=== PATIENT | male | born 1960 | race Hispanic/Latino ===

== ENCOUNTER 2020-03-15 14:40 | Emergency (ER) | payer OTHER ==
[2020-03-15] MEDS ORDERED: PANTOPRAZOLE 40 MG INJ ONE (15:54)
[2020-03-15] MEDS ORDERED: NA CHLORIDE 0.9% 1,000 ML ONE (15:54)
--- NOTE | 2020-03-15 16:16 | RAD REPORT ---
EXAM DESCRIPTION: RAD - Chest Single View - 03/15/2020 3:43 pm CLINICAL HISTORY: bloody stoolsfever COMPARISON: None TECHNIQUE: AP portable chest image was obtained 03/15/2020 3:43 pm . FINDINGS: Lung volumes are low. No focal consolidation or mass. Atelectasis changes are evident. Pat ient likely has some minimal scarring. Heart and vasculature are normal. No measurable pleural effusi on and no pneumothorax. No acute bony abnormality seen. No acute aortic findings suspected. IMPRESSION: Limited shallow inspiration film without significant cardiopulmonary finding identifiabl e.
[2020-03-15 16:25] LABS: Absolute Lymphocytes (CBC) 0.4 K/uL (0.7-4.9); Basophils % 0.7 % (0-1.3); Hematocrit 42.5 % (39.6-49.0); Lymphocytes % 7.5 % (15.3-44.8); MPV 8.4 fL (7.6-11.3); RBC Red Blood Cell Count 4.76 M/uL (4.33-5.43)
[2020-03-15 16:29] LABS: Protime INR 1.11
[2020-03-15 16:30] LABS: ALT/SGPT 87 U/L (12-78); AST/SGOT 62 U/L (15-37); Alkaline Phosphatase 80 U/L (45-117); Amylase 89 U/L (25-115); BUN Blood Urea Nitrogen 17 mg/dL (7-18); Bicarbonate 20 mmol/L (21-32); Bilirubin Direct 0.2 mg/dL (0-0.2); Bilirubin Total 0.7 mg/dL (0.2-1.0); CKMB Creatine Kinase MB < 1.0 ng/mL (0.3-3.6); Creatine Phosphokinase 129 U/L (39-308); Glucose Level 154 mg/dL (74-106); Lipase 241 U/L (73-393); Potassium 3.5 mmol/L (3.5-5.1); Protein, Total 8.1 g/dL (6.4-8.2); Sodium Level 133 mmol/L (136-145); Troponin (Emerg Dept Use Only) < 0.02 ng/mL (0.0-0.045)
--- NOTE | 2020-03-15 17:37 | RAD REPORT ---
EXAM DESCRIPTION: CT - Abdomen Pelvis W Contrast - 03/15/2020 5:20 pm CLINICAL HISTORY: ABD PAIN COMPARISON: No comparisons TECHNIQUE: Biphasic, helical CT imaging of the abdomen and pelvis was performed following 100 ml non -ionic IV contrast. No oral contrast administered. All CT scans are performed using dose optimization technique as appropriate and may include automated exposure control or mA/KV adjustment according to patient size. FINDINGS: Linear stranding is present in both lung bases. This is atelectasis, scarring or a combina tion. Liver shows diffuse fatty infiltration. No focal liver lesions seen. Liver is normal size. No portal vein abnormality. Spleen and pancreas show no suspicious findings. Gallbladder and biliary tree are a lso without suspicious finding. Gallstones can be occult on CT imaging. Symmetric renal function is seen with no hydronephrosis or suspicious renal mass. No pyelonephritis o r acute parenchymal process. No bladder abnormalities. No adrenal abnormalities. No dilated bowel loops or bowel wall thickening. Appendix is normal. No active GI process seen. No fr ee air, free fluid or inflammatory stranding. No hernia, mass or bulky lymphadenopathy. No suspicious bony findings. IMPRESSION: Contrast enhanced CT abdomen and pelvis showing no acute or emergent finding. Patient has diffuse fatty infiltration of the liver.
--- NOTE | 2020-03-15 18:09 | EDPHYS ---
Physician Documentation [facility] Name: Sd Adame Age: 59 yrs Sex: Male : 1960 Arrival Date: 03/15/2020 Time: 14:45 Bed 4 Private MD: ED Physician Nikko Tamayo Historical: - Allergies: 03/15 15:00 No Known Allergies; em - PMHx: 15:00 Gout; em - PSHx: 15:00 None; em - Immunization history:: Adult Immunizations unknown. - Social history:: Smoking status: Patient denies any tobacco usage or history of. Vital Signs: 14:56 BP 149 / 100; Pulse 115; Resp 20; Temp 100.3(O); Pulse Ox 96% on R/A; Weight 90.72 kg; em Height 5 ft. 8 in. (172.72 cm); Pain 5/10; 15:30 BP 121 / 83; Pulse 97; Resp 15; Temp 98.6; Pulse Ox 96% ; jl7 16:30 BP 119 / 79; Pulse 94; Resp 15; Pulse Ox 96% ; jl7 17:20 BP 126 / 78; Pulse 85; Resp 14; Pulse Ox 99% ; jl7 18:26 BP 124 / 79; Pulse 91; Resp 15; Pulse Ox 100% ; jl7 14:56 Body Mass Index 30.41 (90.72 kg, 172.72 cm) em MDM: 18:08 Patient medically screened. [facility] 03/15 15:26 Order name: Amylase, Serum; Complete Time: 17:08 kdr 03/15 15:26 Order name: Basic Metabolic Panel; Complete Time: 17:08 kdr 03/15 15:26 Order name: Blood Culture Adult (2) kdr 03/15 15:26 Order name: CBC with Diff; Complete Time: 17:08 kdr 03/15 15:26 Order name: Ckmb; Complete Time: 17:08 kdr 03/15 15:26 Order name: CPK; Complete Time: 17:08 kdr 03/15 15:26 Order name: Lactate; Complete Time: 17:08 kdr 03/15 15:26 Order name: LFT's; Complete Time: 17:08 kdr 03/15 15:26 Order name: Lipase; Complete Time: 17:08 kdr 03/15 15:26 Order name: Procalcitonin; Complete Time: 17:08 [facility] 03/15 15:26 Order name: Protime (+inr); Complete Time: 17:08 [facility] 03/15 15:26 Order name: Ptt, Activated; Complete Time: 17:08 [facility] 03/15 15:26 Order name: Troponin (emerg Dept Use Only); Complete Time: 17:08 [facility] 03/15 15:26 Order name: Urine Microscopic Only [facility] 03/15 15:26 Order name: Chest Single View XRAY; Complete Time: 17:08 [facility] 03/15 15:26 Order name: Accucheck; Complete Time: 15:59 kdr 03/15 15:26 Order name: Cardiac monitoring; Complete Time: 15:59 [facility] 03/15 15:26 Order name: EKG - Nurse/Tech; Complete Time: 15:59 [facility] 03/15 15:26 Order name: IV Saline Lock - Large Bore; Complete Time: 15:59 [facility] 03/15 15:26 Order name: Labs collected and sent; Complete Time: 15:59 [facility] 03/15 15:26 Order name: O2 Per Protocol; Complete Time: 15:59 [facility] 03/15 15:26 Order name: O2 Sat Monitoring; Complete Time: 15:59 [facility] 03/15 15:26 Order name: Urine Dipstick-Ancillary (obtain specimen); Complete Time: 18:31 [facility] 03/15 15:38 Order name: CT Abd/Pelvis - IV Contrast Only; Complete Time: 18:05 [facility] 03/15 18:40 Order name: Urine Dipstick--Ancillary (enter results) em1 Administered Medications: 16:05 Drug: NS 0.9% (30 ml/kg) 30 ml/kg Route: IV; Rate: bolus; Site: left hand; 7 17:00 Follow up: Response: No adverse reaction; IV Status: Completed infusion; IV Intake: jl7 1000ml 16:05 Drug: ProTONIX 40 mg Route: IVP; Site: left hand; 7 16:28 Follow up: Response: No adverse reaction 7 Disposition: 03/15/20 18:08 Discharged to Home. Impression: Fever, unspecified, Abdominal and pelvic pain. - Condition is Stable. - Discharge Instructions: Urinary Tract Infection, Adult, Alje-gi-Gerp, Abdominal Pain, Adult, [id number], COVID-19. - Prescriptions for Pepcid 20 mg Oral Tablet - take 1 tablet by ORAL route every 12 hours for 5 days; 10 tablet. Zofran 4 mg Oral Tablet - take 1 tablet by ORAL route every 12 hours As needed; 20 tablet. Bactrim DS 800- 160 mg Oral Tablet - take 1 tablet by ORAL route every 12 hours for 7 days; 14 tablet. - Medication Reconciliation Form, Thank You Letter form. - SBAR form (03/15/20 21:18). ls4 - Follow up: Private Physician; When: 2 - 3 days; Reason: If symptoms return, Further diagnostic work-up, Recheck today's complaints, Continuance of care, Re-evaluation by your physician. - Problem is new. - Symptoms have improved. Signatures: Dispatcher [employer] EDMS Nikko Tamayo MD MD kdr Munoz, Edgar, RN RN em Seven Mishra RN RN jl7 Gilma Waller RN ls4 Corrections: (The following items were deleted from the chart) 18:28 18:16 CORONAVIRUS+MR.LAB.BRZ ordered. EDWY EDMS 18:42 15:27 UA MICROSCOPIC+U.LAB.BRZ ordered. EDWY EDMS 18:43 18:08 03/15/2020 18:08 Discharged to Home. Impression: Fever, unspecified; Abdominal jl7 and pelvic pain. Condition is Stable. Forms are Medication Reconciliation Form, Thank You Letter, Antibiotic Education, Prescription Opioid Use. Follow up: Private Physician; When: 2 - 3 days; Reason: If symptoms return, Further diagnostic work-up, Recheck today's complaints, Continuance of care, Re-evaluation by your physician. Problem is new. Symptoms have improved. kdr
--- NOTE | 2020-03-15 18:09 | ER ---
Nurse's Notes [facility] Name: Sd Adame Age: 59 yrs Sex: Male : 1960 Arrival Date: 03/15/2020 Time: 14:45 Bed 4 Private MD: Diagnosis: Fever, unspecified;Abdominal and pelvic pain Presentation: 03/15 14:56 Chief complaint: Patient states: went to Dr. bauer and was told to go to the ER for em having 103 fever and black stool for 2 days, denies N/V. Coronavirus screen: Surgical mask placed on patient. Patient moved to private room, placed in contact and droplet isolation with eye protection until further assessment. Patient denies a cough. Patient denies shortness of breath or difficulty breathing. Patient reports a measured and/or subjective temperature greater than 100.4F. Patient denies travel on a cruise ship or to a country the [facility] currently lists as an affected area. Patient denies contact with known and/or suspected case of COVID-19. Ebola Screen: Patient negative for fever greater than or equal to 101.5 degrees Fahrenheit, and additional compatible Ebola Virus Disease symptoms Patient denies exposure to infectious person. Patient denies travel to an Ebola-affected area in the 21 days before illness onset. No symptoms or risks identified at this time. Initial Sepsis Screen: Does the patient meet any 2 criteria? HR > 90 bpm. No. Patient's initial sepsis screen is negative. Does the patient have a suspected source of infection? Yes: Acute abdominal pain. Risk Assessment: Do you want to hurt yourself or someone else? Patient reports no desire to harm self or others. Onset of symptoms was March 14, 2020. 14:56 Method Of Arrival: Ambulatory em 14:56 Acuity: ALEX 3 em Historical: - Allergies: 15:00 No Known Allergies; em - PMHx: 15:00 Gout; em - PSHx: 15:00 None; em - Immunization history:: Adult Immunizations unknown. - Social history:: Smoking status: Patient denies any tobacco usage or history of. Screenin:02 Abuse screen: Denies threats or abuse. Denies injuries from another. Nutritional jl7 screening: No deficits noted. Tuberculosis screening: No symptoms or risk factors identified. Fall Risk IV access (20 points). Total Marie Fall Scale indicates No Risk (0-24 pts). Assessment: 15:30 General: Appears in no apparent distress. uncomfortable, Behavior is calm, cooperative, jl7 appropriate for age. Pain: Denies pain. Complains of pain in reports "It doesn't really hurts, feels more like I'm hungry.". Neuro: Level of Consciousness is awake, alert, obeys commands, Oriented to person, place, time, situation. Cardiovascular: Patient's skin is warm and dry. Respiratory: Airway is patent Respiratory effort is even, unlabored, Respiratory pattern is regular, symmetrical. GI: Reports bloody stool. Derm: Skin is pink, warm \\T\\ dry. 16:30 Reassessment: Patient appears in no apparent distress at this time. No changes from jl7 previously documented assessment. Patient and/or family updated on plan of care and expected duration. Pain level reassessed. Patient is alert, oriented x 3, equal unlabored respirations, skin warm/dry/pink. 17:30 Reassessment: Patient appears in no apparent distress at this time. Patient and/or jl7 family updated on plan of care and expected duration. Pain level reassessed. Patient is alert, oriented x 3, equal unlabored respirations, skin warm/dry/pink. Patient states feeling better. 18:25 Reassessment: Pt refused COVID-19 sawb, WILLIAM notified, Lab notified. jl7 18:41 Reassessment: Pt provided urine sample, dip showed nitrites and leukocytes, WILLIAM [email or web address] notified and gave written prescription. Vital Signs: 14:56 BP 149 / 100; Pulse 115; Resp 20; Temp 100.3(O); Pulse Ox 96% on R/A; Weight 90.72 kg; em Height 5 ft. 8 in. (172.72 cm); Pain 5/10; 15:30 BP 121 / 83; Pulse 97; Resp 15; Temp 98.6; Pulse Ox 96% ; jl7 16:30 BP 119 / 79; Pulse 94; Resp 15; Pulse Ox 96% ; jl7 17:20 BP 126 / 78; Pulse 85; Resp 14; Pulse Ox 99% ; jl7 18:26 BP 124 / 79; Pulse 91; Resp 15; Pulse Ox 100% ; jl7 14:56 Body Mass Index 30.41 (90.72 kg, 172.72 cm) em ED Course: 14:45 Patient arrived in ED. ag5 14:59 Triage completed. em 15:00 Arm band placed on. em 15:14 Nikko Tamayo MD is Attending Physician. kdr 15:33 Seven Mishra, PRANEETH is Primary Nurse. jl7 15:43 Chest Single View XRAY In Process Unspecified. EDMS 15:53 Initial lab(s) drawn, by va, sent to lab. First set of blood cultures drawn by va. jl7 15:57 Second set of blood cultures drawn by va. jl7 16:02 Patient has correct armband on for positive identification. Placed in gown. Bed in low jl7 position. Call light in reach. Side rails up X 1. gambling monitor on. Pulse ox on. NIBP on. 16:02 Inserted saline lock: in left wrist, using aseptic technique. Blood collected. jl7 17:20 CT Abd/Pelvis - IV Contrast Only In Process Unspecified. EDMS 18:41 No provider procedures requiring assistance completed. IV discontinued, intact, jl7 bleeding controlled, No redness/swelling at site. Pressure dressing applied. Administered Medications: 16:05 Drug: NS 0.9% (30 ml/kg) 30 ml/kg Route: IV; Rate: bolus; Site: left hand; jl7 17:00 Follow up: Response: No adverse reaction; IV Status: Completed infusion; IV Intake: jl7 1000ml 16:05 Drug: ProTONIX 40 mg Route: IVP; Site: left hand; jl7 16:28 Follow up: Response: No adverse reaction jl7 Intake: 17:00 IV: 1000ml; Total: 1000ml. jl7 Outcome: 18:08 Discharge ordered by . kdr 18:41 Discharged to home ambulatory. jl7 18:41 Condition: stable 18:41 Discharge instructions given to patient, Instructed on discharge instructions, follow up and referral plans. medication usage, Demonstrated understanding of instructions, follow-up care, medications, Prescriptions given X 3. 18:43 Patient left the ED. jl7 Addendum: 03/21/2020 19:36 Addendum: Culture Results: Positive urine culture. No further action required. Bacteria i w sensitive to prescribed antibiotic. Signatures: Dispatcher [employer] EDTN Nikko Tamayo MD MD kdr Mihai Castellanos, RN RN Kamila Norris, RN RN iw Seven Mishra, RN RN jl7 Rafael, Roseanna ag5
[2020-03-15 18:47] LABS: Urine Blood TRACE (NEG); Urine Glucose NEGATIVE (NEG); Urine Protein 1+ (NEG)
[2020-03-15 19:04] VITALS: TEMP 98.6
[2020-03-15 19:08] VITALS: BP 124/79; O2SAT 100
[2020-03-15 19:25] LABS: Urine Bacteria >50 /HPF (NONE SEEN); Urine Culture Reflex Order REFLEXED; Urine RBC <5 /HPF (NONE SEEN)
--- NOTE | 2020-03-17 06:46 | EKG ---
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
== END 2020-03-15 18:43 | disposition home or self-care (01) ==
LOC: ER 14:40
DX: R10.2 Pelvic and perineal pain (principal)
CPT/HCPCS: 96365; 93005; 87040 ×2; 87088; 85025; 87086; 80048; 36415; 82150; 82550; 85610; 80076; 83605; 85730; 87077; 87186; 84484; 82553; 83690; 84145; 74177; 71045; 96375; 99284; Q9967; C9113; J7030; 81003; 81015